=== PATIENT | female | born 1975 | race Caucasian/White ===

== ENCOUNTER 2017-02-25 22:10 | Emergency (ER) | payer OTHER ==
[~2017-02-25] VITALS: Ht 177.8 cm; Wt 122.5 kg
[~2017-02-25 22:10] MED LIST: AMBIEN 10 MG TA10 MG PO; ASPIRIN325 PO; CELEXA 20 MG TA20 M1 PO; HYDROCODON-ACE1 EAC5 PO; LIPITOR20 MG PO; LISINOPRIL20 MG PO; TOPAMAX100 MG PO; TOPROL XL25 MG PO; XANAX XR1 MG PO
[2017-02-25] MEDS ORDERED: PHENERGAN 25 MG25 M1 PO (22:37)
[2017-02-26 00:18] VITALS: BP 116/71
== END 2017-02-26 00:24 | disposition home or self-care (01) ==
LOC: ER 22:10
DX: G43.909 Migraine, unspecified, not intractable, without status migrainosus (principal); M79.7 Fibromyalgia; G47.30 Sleep apnea, unspecified; I10 Essential (primary) hypertension; K58.9 Irritable bowel syndrome, unspecified; Z95.0 Presence of cardiac pacemaker; Z88.6 Allergy status to analgesic agent; Z88.5 Allergy status to narcotic agent; Z88.8 Allergy status to other drugs, medicaments and biological substances; Z87.891 Personal history of nicotine dependence